=== PATIENT | female | born 1955 | race Caucasian/White ===

== ENCOUNTER 2017-03-11 21:31 | Emergency (ER) | payer BC, OTHER ==
[~2017-03-11] VITALS: Ht 165.1 cm; Wt 55.0 kg
[~2017-03-11 21:31] MED LIST: CEPH500C PO; HYDR-906 PO; HYDROCHLOROTHIAZIDE PO; PEPCID PO; SAME MEDS; SERT50TA PO; SIMV40TA2 PO
[2017-03-11 21:39] VITALS: Ht 165.1 cm; Wt 55.0 kg
[2017-03-11] MEDS ORDERED: IBUPROFEN 800 MG TAB PO ONE (22:30)
--- NOTE | 2017-03-12 00:14 | ERD ---
ER Documentation Chief Complaint Date/Time DATE: 03/12/17 TIME: 00:12 Chief Complaint bib ra for glf, right knee pain s/p fall HPI This is a 61-year-old female presents to the emergency room for evaluation of a ground-level fall. The patient states that she slipped and restorative fell down and fell on her right knee and is having pain in her right knee and her right great toe. She denies head injury or loss of consciousness. She describes her pain as an achy pain located in the right knee and right toe worse with movement with no radiation. ROS All systems reviewed and are negative except as per history of present illness. Medications Home Meds Active Scripts Hydrocodone/Acetaminophen (Con[place] 5-325 Tablet) 1 Each Tablet, 1 EACH PO Q4, #15 TAB Prov:MARCOS BAIN PA-C 06/02/16 Reported Medications Cephalexin* (Cephalexin*) 500 Mg Capsule, 500 MG PO Q6, CAP 02/23/14 [Same Meds] No Conflict Check 05/17/12 [Hydrochlorothiazide] No Conflict Check, PO DAILY 12/04/11 [Pepcid] No Conflict Check, PO PRN 12/04/11 Sertraline Hcl* (Zoloft*) 50 Mg Tablet, 50 MG PO DAILY 12/04/11 Simvastatin* (Zocor*) 40 Mg Tablet, 40 MG PO DAILY 12/04/11 Allergies Allergies: Coded Allergies: No Known Allergy (Unverified , 08/18/13) PMhx/Soc Medical and Surgical Hx: pt denies Medical Hx, pt denies Surgical Hx History of Surgery: Yes (RHINOPLASTY 02/20/14 AT [facility] Anesthesia Reaction: No Hx Neurological Disorder: No Hx Respiratory Disorders: No Hx Cardiac Disorders: Yes (HTN) Hx Psychiatric Problems: No Hx Miscellaneous Medical Probl: No Hx Alcohol Use: No Hx Substance Use: No Hx Tobacco Use: No Smoking Status: Never smoker Physical Exam Vitals Vital Signs Date Time Temp Pulse Resp B/P Pulse Ox O2 Delivery O2 Flow Rate FiO2 03/11/17 21:39 98.5 81 19 144/88 99 03/11/17 21:39 98.5 85 19 137/82 99 Room Air Physical Exam INITIAL VITAL SIGNS: Reviewed by me GENERAL: The patient is well developed and appropriate for usual state of health in no apparent distress HEENT: Pupils equal, round, and reactive to light. EOMI. There is no scleral icterus. NECK: C-spine is soft and supple, there is no meningismus. There is no cervical lymphadenopathy. LUNGS: Clear to auscultation bilaterally. There are no rales, wheezes or rhonchi. HEART: Regular rate and rhythm, no murmurs, clicks, rubs or gallops. ABDOMEN: Soft, non-tender, non-distended. There are bowel sounds in all four quadrants. No rebound or guarding. EXTREMITIES: Tenderness to palpation of the right patella, no soft tissue swelling, no deforming there is no peripheral cyanosis or edema. No focal swelling or erythema. NEUROLOGICAL: The patient moves all four extremities with 5/5 strength. Cranial nerves II - XII are intact. Normal gait. Alert and oriented SKIN: There is no apparent rash or petechiae. HEME/LYMPHATIC: There is no evidence of excessive bruising or lymphedema. PSYCHIATRIC: The patient does not appear anxious or depressed. Results 24 hrs Current Medications Medications (Trade) Dose Ordered Sig/Melinda Route PRN Reason Start Time Stop Time Status Last Admin Dose Admin Ibuprofen (Motrin) 800 mg ONCE ONCE PO 03/11/17 22:30 03/11/17 22:31 DC 03/11/17 23:29 Procedures/MDM X-ray Foot 3V Interpreted by me: Bones: No fracture Joints: No dislocation Foreign body: None X-ray Knee 3V Interpreted by me: Bones: No fracture Joints: No dislocation Foreign body: None A right knee immobilizer splint was applied by the tech under my direct supervision. After splint application, the patient was appreciated to have a normal distal neurovascular examination. This 61-year-old female presents to the ER for evaluation of right knee pain and foot pain after a ground-level fall. When I evaluated this patient patient did have some tenderness in the right knee and right great toe. X-rays do not reveal any fracture. The patient was given Motrin in the ER. She was placed in the immobilizer, will be discharged at this time with a prescription for Motrin, and 5 tabs of Conroe 5 mg for breakthrough pain. Departure Diagnosis: Primary Impression: Contusion of right knee Additional Impressions: Fall Contusion of right foot Condition: Stable GRETCHEN ROD DO Mar 12, 2017 00:14
[2017-03-12] MEDS ORDERED: IBUP800T25 PO (00:15)
[2017-03-12] MEDS ORDERED: HYDR-906 PO (00:15)
--- NOTE | 2017-03-12 00:18 | RADRPT ---
PROCEDURE: XR Knee. CLINICAL INDICATION: Right knee pain. TECHNIQUE: 4 views of the right knee. COMPARISON: None available FINDINGS: There is no acute fracture or dislocation. The joint spaces are preserved. No joint effusion is id entified. IMPRESSION: 1. No acute fracture or dislocation of the right knee. RPTAT: HTAR .Juan Littlejohn MD, MD Date Time Electronically viewed and signed by .Juan Littlejohn MD, on 03/12/2017 00:18 .R/
--- NOTE | 2017-03-12 00:18 | RADRPT ---
PROCEDURE: XR Foot. CLINICAL INDICATION: Pain. TECHNIQUE: Three views of the right foot. COMPARISON: None available. FINDINGS: No fracture or dislocation is identified. The joint spaces are preserved. There is no significant soft tissue swelling. IMPRESSION: 1. No fracture or dislocation of the right foot. RPTAT: HTAR .Juan Littlejohn MD, Date Time Electronically viewed and signed by .Juan Littlejohn MD, on 03/12/2017 00:17 .R/
[2017-03-12 00:31] VITALS: BP 130/81; PULSE 81; RESP 18; TEMP 98.5
== END 2017-03-12 00:32 | disposition home or self-care (01) ==
LOC: E/R 21:31
DX: S80.01XA Contusion of right knee, initial encounter (principal); S90.31XA Contusion of right foot, initial encounter; I10 Essential (primary) hypertension; W01.0XXA Fall on same level from slipping, tripping and stumbling without subsequent striking against object, initial encounter
CPT/HCPCS: 29505; 73564; 73630; Z7502; Z7610